=== PATIENT | female | born 1955 | race Caucasian/White ===

== ENCOUNTER 2016-12-10 23:35 | Emergency (ER) | payer BC ==
--- NOTE | ~2016-12-10 | CT2 ---
[facility] A Service of [facility] RADIOLOGY TEXT RESULTS PATIENT: PHIL THAYER LOCATION: [facility] : 51 UNIT #: [id number] AGE: [address]: Logan Sena MD SEX: F ORDER DR: [id number] [place] [id number] [facility]. [place], [place] [address] [id number] E MR#: [id number] Acc #: [id number] NAME: PHIL THAYER : 1955 SEX: F STUDY DATE/TIME: 12/11/2016 0:02 UNIT: [facility] ROOM: STUDY DESCRIPTION: CT Abd and Pelv W Cont Attending Physician: Logan Sena M.D. Ordering Physician: Logan Sena M.D. MEDICAL IMAGING REPORT This report is preliminary unless electronic signature is present EXAM CT abdomen and pelvis with contrast 12/11/2016 HISTORY Stomach pain and vomiting for 2 days. Headache. COMPARISON None. TECHNIQUE 5 mm axial images from the lung bases to the lesser trochanters after intravenous contrast administration. Enteric contrast not history. Sagittal and coronal reformatted images were obtained. This CT exam was performed with one or more of the following radiation dose reduction techniques: automatic exposure control, adjustment of mA and/or kV according to patient size, and iterative reconstruction. FINDINGS ABDOMEN: Liver is markedly diffusely steatotic. The gallbladder, spleen, pancreas, adrenals and kidneys are within normal limits. No free air or free fluid is identified. The appendix is not visualized but no pericecal inflammatory process is evident. The bowel appears grossly non-thickened, non-dilated, non-inflamed, although assessment is limited due to lack of enteric contrast. Diverticular changes are seen within the descending and sigmoid colon without evidence of acute diverticulitis. There is minimal linear scarring or subsegmental atelectasis in the bilateral lower lobes. No dense lung consolidations are identified. PELVIS: Bilateral hip prosthesis creates beam hardening artifact, limiting evaluation on several images of the pelvis. The urinary bladder, [facility] A Service of [facility] RADIOLOGY TEXT RESULTS PATIENT: PHIL THAY[id number] 51 UNIT #: [id number] AGE: [address]: Logan Sena MD SEX: F ORDER DR: uterus and rectum appear grossly unremarkable. Slight sigmoid diverticular changes are present without an acute diverticulitis. There is grade 1 anterolisthesis of L5 on S1 thought to be related to advanced facet arthropathy that level. There is advanced diminished disc height at L5-S1, as well. No acute osseous abnormalities are identified. There are old left seventh and eighth rib fractures. IMPRESSION 1. No acute findings appreciated within the abdomen and pelvis. 2. Appendix is not visualized but no pericecal inflammation is seen. 3. Uncomplicated descending and sigmoid diverticulosis. 4. Marked diffuse hepatic steatosis. 5. Bilateral hip replacements. 6. Grade 1 anterolisthesis of L5 upon S1, thought to be related to advanced facet arthropathy at that level. 7. Old left rib fractures. Dictated by... Samra Londono M.D. THIS IS AN ELECTRONICALLY VERIFIED REPORT Samra Londono M.D. at 12/11/2016 10:01 PM KRISTAL/alice TD: 12/11/2016 02:57 JOB #: [id number] MEDICAL IMAGING REPORT Page 1 of 1 COPY
[2016-12-10 20:07] LABS: BASOPHIL% 0.5 % (0-2.5); EOSINOPHIL# 0.1 X10e3 (0-0.7); EOSINOPHIL% 1.8 % (0.0-7.0); HEMATOCRIT 43.9 % (35.0-45.0); HEMOGLOBIN 14.4 gm/dL (12.0-16.0); LYMPHOCYTE# 1.9 X10e3 (1.0-3.5); MEAN CELL VOLUME 89.1 FL (83-96); MEAN CORPUSCULAR HEMOGLOBIN 29.3 PG (28-34); MEAN CORPUSCULAR HGB CONC 32.9 g/dL (30-36); MEAN PLATELET VOLUME 8.2 FL (6.5-11.5); MONOCYTE# 0.7 X10e3 (0-1.0); MONOCYTE% 12.3 % (3.0-12.0); NEUTROPHIL# 2.8 X10e3 (1.5-7.1); NEUTROPHIL% 51.4 % (40-75); PLATELET COUNT 206 X10e3 (140-420); RED BLOOD COUNT 4.93 X10e (3.90-5.30); RED CELL DISTRIBUTION WIDTH 13.7 % (11.0-15.5); WHITE BLOOD COUNT 5.5 X10e3 (4.0-10.5)
[2016-12-10 20:09] LABS: DIFF IND NO
[2016-12-10 20:39] LABS: ALBUMIN SERUM 4.2 g/dL (3.5-5.0); BILIRUBIN, DIRECT 0.1 mg/dL (0.0-0.2); BILIRUBIN,INDIRECT 0.8 mg/dL (0.0-0.9); BILIRUBIN,TOTAL 0.9 mg/dL (0.2-2.0); BUN/CREATININE RATIO 21.66; CALCIUM SERUM 9.7 mg/dL (8.4-10.2); CREATININE SERUM 0.6 mg/dL (0.6-1.4); POTASSIUM 3.9 mmol/L (3.5-5.1); PROTEIN TOTAL SERUM 7.6 g/dL (6.0-8.3)
[2016-12-10 22:48] LABS: URINE SOURCE CLEAN CATCH
[2016-12-10 23:00] LABS: URINE APPEARANCE CLEAR; URINE BILIRUBIN NEG (NEG); URINE BLOOD NEG (NEG); URINE COLOR DK YELLOW; URINE GLUCOSE NEG (NEG); URINE KETONE NEG (NEG); URINE LEUKOCYTE ESTERASE NEG (NEG); URINE NITRATE NEG (NEG); URINE PROTEIN NEG (NEG); URINE SPECIFIC GRAVITY 1.021 (1.003-1.035); URINE UROBILINOGEN 0.2 MG/DL (NEG)
[2016-12-10 23:07] LABS: CULTURE INDICATED? NO
== END 2016-12-11 01:00 | disposition home or self-care (01) ==
LOC: CED 23:35
DX: R10.10 Upper abdominal pain, unspecified (principal); R11.2 Nausea with vomiting, unspecified; I10 Essential (primary) hypertension; Z90.49 Acquired absence of other specified parts of digestive tract; Z98.51 Tubal ligation status
CPT/HCPCS: 36415; 74177; 80048; 80076; 81003; 83690; 85025; 96361; 96374; 96375; 99284; J2405; Q9967

== ENCOUNTER 2017-01-11 06:56 | Emergency (ER) | payer BC ==
--- NOTE | ~2017-01-11 | CR173 ---
[facility] A Service of [facility] & [facility] RADIOLOGY TEXT RESULTS PATIENT: PHIL THAYER LOCATION: [facility] : 53 UNIT #: [id number] AGE: [address]: Sharda Samuels APRN SEX: F ORDER DR: [id number] [facility] [address] [place], [place] [address] [id number] E MR#: [id number] Acc #: [id number] NAME: PHIL THAYER : 1955 SEX: F STUDY DATE/TIME: 01/11/2017 8:19 UNIT: [facility] ROOM: STUDY DESCRIPTION: CR Knee 3 Views Rt Attending Physician: Sharda Samuels A.P.R.N. Ordering Physician: Kemar Lassiter M.D. Primary Care Physician: No Primary Care Physician MEDICAL IMAGING REPORT This report is preliminary unless electronic signature is present EXAM Right knee. INDICATION Right knee pain after trauma. COMPARISON No comparison. FINDINGS Three views of the right knee were obtained and on the lateral view the relationship between the femoral component and the tibial component of the knee prosthesis appears abnormal with some anterior subluxation of the femoral component on the tibial component. There is no fracture visible. The patella appears intact. The lateral knee view is slightly rotated but even allowing for that, I believe the image is abnormal. Dictated by... Munir Stovall M.D. THIS IS AN ELECTRONICALLY VERIFIED REPORT Munir Stovall M.D. at 01/12/2017 7:26 AM LOLIS/renate TD: 01/11/2017 14:53 JOB #: [id number] MEDICAL IMAGING REPORT Page 1 of 1 COPY
--- NOTE | ~2017-01-11 | CR58 ---
[facility] A Service of [facility] & [facility] RADIOLOGY TEXT RESULTS PATIENT: PHIL THAYER LOCATION: [facility] : 51 UNIT #: [id number] AGE: [address]: Sharda Samuels APRN SEX: F ORDER DR: [id number] [facility] [address] [place], [place] [address] [id number] E MR#: [id number] Acc #: [id number] NAME: PHIL THAYER : 1955 SEX: F STUDY DATE/TIME: 01/11/2017 8:02 UNIT: [facility] ROOM: STUDY DESCRIPTION: CR Cervical Spine 2 or 3 Views Attending Physician: Sharda Samuels A.P.R.N. Ordering Physician: Ed Yousuf Lassiter M.D. Primary Care Physician: No Primary Care Physician MEDICAL IMAGING REPORT This report is preliminary unless electronic signature is present EXAM Cervical spine 3-view series. INDICATION Fall yesterday with neck pain. FINDINGS AP, lateral, and odontoid views of the cervical spine were obtained. There appears to be fusion of C5, 6, and 7. The alignment is normal. The other disc spaces are normal. There is no soft tissue swelling. IMPRESSION Fusion of C5, 6, and 7. No visible fracture or subluxation. Dictated by... Munir Stovall M.D. THIS IS AN ELECTRONICALLY VERIFIED REPORT Munir Stovall M.D. at 01/12/2017 7:26 AM LOLIS/renate TD: 01/11/2017 14:40 JOB #: [id number] MEDICAL IMAGING REPORT Page 1 of 1 COPY
--- NOTE | ~2017-01-11 | CR127 ---
[facility] A Service of [facility] & [facility] RADIOLOGY TEXT RESULTS PATIENT: PHIL THAYER LOCATION: [facility] : 53 UNIT #: [id number] AGE: [address]: Sharda Samuels APRN SEX: F ORDER DR: [id number] [facility] [address] [place], [place] [address] [id number] E MR#: [id number] Acc #: [id number] NAME: PHIL THAYER : 1955 SEX: F STUDY DATE/TIME: 01/11/2017 8:23 UNIT: [facility] ROOM: STUDY DESCRIPTION: CR Foot Complete Min 3 View Rt Attending Physician: Sharda Samuels A.P.R.N. Ordering Physician: Ed Yousuf Lassiter M.D. Primary Care Physician: No Primary Care Physician MEDICAL IMAGING REPORT This report is preliminary unless electronic signature is present EXAM Right foot. INDICATION Right foot pain after a fall yesterday. FINDINGS Three views of the right foot were obtained. No fracture is visible. The bones are normal. IMPRESSION Normal right foot. Dictated by... Munir Stovall M.D. THIS IS AN ELECTRONICALLY VERIFIED REPORT Munir Stovall M.D. at 01/12/2017 7:26 AM LOLIS/renate TD: 01/11/2017 15:02 JOB #: [id number] MEDICAL IMAGING REPORT Page 1 of 1 COPY
--- NOTE | ~2017-01-11 | CR211 ---
[facility] A Service of [facility] RADIOLOGY TEXT RESULTS PATIENT: PHIL THAYER LOCATION: [facility] : 53 UNIT #: [id number] AGE: [address]: Sharda Samuels APRN SEX: F ORDER DR: [id number] [facility] [address] [place], [place] [address] [id number] E MR#: [id number] Acc #: [id number] NAME: PHIL THAYER : 1955 SEX: F STUDY DATE/TIME: 01/11/2017 8:03 UNIT: [facility] ROOM: STUDY DESCRIPTION: CR Ribs Uni 2 View W PA Ch Rt Attending Physician: Sharda Samuels A.P.R.N. Ordering Physician: Ed Yousuf Lassiter M.D. Primary Care Physician: No Primary Care Physician MEDICAL IMAGING REPORT This report is preliminary unless electronic signature is present EXAM Right rib series with PA chest. HISTORY Fall yesterday with right rib pain. FINDINGS A PA view of the chest and oblique views of the right ribs were obtained. The heart size and vascularity are normal and the lungs are clear. The bones are unremarkable. The lungs are clear. IMPRESSION No active disease. Dictated by... Munir Stovall M.D. THIS IS AN ELECTRONICALLY VERIFIED REPORT Munir Stovall M.D. at 01/12/2017 7:26 AM LOLIS/renate TD: 01/11/2017 14:42 JOB #: [id number] MEDICAL IMAGING REPORT Page 1 of 1 COPY
--- NOTE | ~2017-01-11 | CR21 ---
[facility] A Service of [facility] & [facility] RADIOLOGY TEXT RESULTS PATIENT: PHIL THAYER LOCATION: [facility] : 51 UNIT #: [id number] AGE: [address]: Sharda Samuels APRN SEX: F ORDER DR: [id number] [facility] [address] [place], [place] [address] [id number] E MR#: [id number] Acc #: [id number] NAME: PHIL THAYER : 1955 SEX: F STUDY DATE/TIME: 01/11/2017 8:22 UNIT: [facility] ROOM: STUDY DESCRIPTION: CR Ankle Min 3 Views Rt Attending Physician: Sharda Samuels A.P.R.N. Ordering Physician: Ed Yousuf Lassiter M.D. Primary Care Physician: No Primary Care Physician MEDICAL IMAGING REPORT This report is preliminary unless electronic signature is present EXAM Right ankle. INDICATION Right ankle pain after a fall. FINDINGS Three views of the right ankle were obtained. There is no fracture identified. The bones are normal. IMPRESSION Normal right ankle. Dictated by... Munir Stovall M.D. THIS IS AN ELECTRONICALLY VERIFIED REPORT Munir Stovall M.D. at 01/12/2017 7:26 AM LOLIS/renate TD: 01/11/2017 15:01 JOB #: [id number] MEDICAL IMAGING REPORT Page 1 of 1 COPY
--- NOTE | ~2017-01-11 | CR151 ---
[facility] A Service of [facility] & [facility] RADIOLOGY TEXT RESULTS PATIENT: PHIL THAYER LOCATION: [facility] : 51 UNIT #: [id number] AGE: [address]: Sharda Samuels APRN SEX: F ORDER DR: [id number] [facility] [address] [place], [place] [address] [id number] E MR#: [id number] Acc #: [id number] NAME: PHIL THAYER : 1955 SEX: F STUDY DATE/TIME: 01/11/2017 8:27 UNIT: [facility] ROOM: STUDY DESCRIPTION: CR Hip Min 2 Views Rt Attending Physician: Sharda Samuels A.P.R.N. Ordering Physician: Ed Yousuf Lassiter M.D. Primary Care Physician: No Primary Care Physician MEDICAL IMAGING REPORT This report is preliminary unless electronic signature is present EXAM Right hip. INDICATION Right hip pain after a fall yesterday. Patient has right hip and left hip replacement. COMPARISON There is no comparison. FINDINGS An AP view the pelvis and a lateral view of the right hip were obtained. There are bilateral hip prostheses present. There is no fracture visible. There is no dislocation. IMPRESSION Bilateral hip replacements. No evidence of fracture or dislocation. Dictated by... Munir Stovall M.D. THIS IS AN ELECTRONICALLY VERIFIED REPORT Munir Stovall M.D. at 01/12/2017 7:26 AM LOLIS/renate TD: 01/11/2017 15:03 JOB #: [id number] MEDICAL IMAGING REPORT Page 1 of 1 COPY
== END 2017-01-11 10:29 | disposition home or self-care (01) ==
LOC: CED 06:56
DX: S13.4XXA Sprain of ligaments of cervical spine, initial encounter (principal); S23.3XXA Sprain of ligaments of thoracic spine, initial encounter; S70.01XA Contusion of right hip, initial encounter; S20.211A Contusion of right front wall of thorax, initial encounter; S80.01XA Contusion of right knee, initial encounter; W01.0XXA Fall on same level from slipping, tripping and stumbling without subsequent striking against object, initial encounter; Y92.512 Supermarket, store or market as the place of occurrence of the external cause
CPT/HCPCS: 71101; 72040; 73502; 73562; 73610; 73630; 99284

== ENCOUNTER 2017-04-21 09:08 | Emergency (ER) | payer BC ==
[~2017-04-21] VITALS: Ht 175.3 cm; Wt 89.3 kg
--- NOTE | ~2017-04-21 | CR72 ---
[facility] A Service of [facility] RADIOLOGY TEXT RESULTS PATIENT: PHIL THAYER LOCATION: [facility] : 51 UNIT #: [id number] AGE: [address]: Elizabeth Anguiano MD SEX: F ORDER DR: [id number] [place] [id number] [facility]. [place], [place] [address] [id number] E MR#: [id number] Acc #: [id number] NAME: PHIL THAYER : 1955 SEX: F STUDY DATE/TIME: 04/21/2017 10:20 UNIT: [facility] ROOM: STUDY DESCRIPTION: CR Chest Single View Portable Attending Physician: Elizabeth Anguiano M.D. Referring Physician: Lizzy Lance M.D. Ordering Physician: Samm Sandhu M.D. Primary Care Physician: Lizzy Lance M.D. MEDICAL IMAGING REPORT This report is preliminary unless electronic signature is present EXAM AP portable chest Date: 04/21/2017 HISTORY 61-year-old female syncopal episode and shortness of breath today. History of non-Hodgkin's lymphoma. COMPARISON PA lateral chest radiograph 06/14/2016. FINDINGS No acute airspace disease. Benign calcified lymph node in the left hilum. No pleural effusion. No pneumothorax. No acute osseous abnormality. Mild bilateral AC joint arthropathy is present. IMPRESSION 1. No acute chest findings. 2. Benign calcified granulomatous changes. 3. No significant change compared to 06/14/2016. Dictated by... Samra Londono M.D. THIS IS AN ELECTRONICALLY VERIFIED REPORT Samra Londono M.D. at 04/21/2017 5:03 PM LLH/susana TD: 04/21/2017 12:53 [facility] A Service of [facility] RADIOLOGY TEXT RESULTS PATIENT: PHIL THYAER LOCATION: [facility] : 51 UNIT #: [id number] AGE: [address]: Elizabeth Anguiano MD SEX: F ORDER DR: JOB #: [id number] MEDICAL IMAGING REPORT Page 1 of 1 COPY
--- NOTE | ~2017-04-21 | CT71 ---
[facility] A Service of [place] [facility] RADIOLOGY TEXT RESULTS PATIENT: PHIL THAYER LOCATION: [facility] : 53 UNIT #: [id number] AGE: [address]: Elizabeth Anguiano MD SEX: F ORDER DR: [id number] [id number] [facility] [place], [place] [address] [id number] E MR#: [id number] Acc #: [id number] NAME: PHIL THAYER : 1955 SEX: F STUDY DATE/TIME: 04/21/2017 11:14 UNIT: [facility] ROOM: STUDY DESCRIPTION: CT Head Wo Contrast Attending Physician: Elizabeth Anguiano M.D. Referring Physician: Lizzy Lance M.D. Ordering Physician: Samm Sandhu M.D. Primary Care Physician: Lizzy Lance M.D. MEDICAL IMAGING REPORT This report is preliminary unless electronic signature is present EXAM CT scan of the head without contrast, 04/21/2017. HISTORY Blackout at work today; having hallucinations. COMPARISON 05/30/2016 TECHNIQUE Unenhanced images were obtained through the brain. This CT exam was performed with one or more of the following radiation dose reduction techniques: automatic exposure control, adjustment of mA and/or kV according to patient size, and iterative reconstruction. FINDINGS The ventricles and subarachnoid spaces are normal. There are no masses, extraaxial fluid collections, or hemorrhages. Probable arachnoid cyst in the posterior skull above the cisterna magna versus just a simple prominent CSF space, but it is unchanged from 05/30/2016. It is about 2.5 cm in diameter, but there is no mass effect. IMPRESSION No acute abnormalities; no change from the prior study. Dictated by... Munir Stovall M.D. THIS IS AN ELECTRONICALLY VERIFIED REPORT Munir Stovall M.D. at 04/22/2017 7:07 AM [facility] A Service of [place] [facility] RADIOLOGY TEXT RESULTS PATIENT: PHIL THAY[id number] 51 UNIT #: [id number] AGE: [address]: Elizabeth Anguiano MD SEX: F ORDER DR: Cindy TD: 04/21/2017 18:34 JOB #: [id number] MEDICAL IMAGING REPORT Page 1 of 1 COPY
--- NOTE | ~2017-04-21 | EKG ---
PATIENT: PHIL THAYER UNIT #: [id number] Ventricular Rate: 57 BPM Atrial Rate: 57 BPM P-R Interval: 200 ms QRS Duration: 88 ms Q-T Interval: 452 ms QTC Calculation(Bezet): 439 ms P Elmo: 13 degrees Calculated R Elmo: 12 degrees Calculated T Elmo: 39 degrees Diagnosis Line: Sinus bradycardia Diagnosis Line: Minimal voltage criteria for LVH, may be normal Diagnosis Line: variant Diagnosis Line: Inferior infarct , age undetermined Diagnosis Line: Abnormal ECG Diagnosis Line: When compared with ECG of 29-APR-2016 20:49, Diagnosis Line: Inferior infarct is now Present Diagnosis Line: ST no longer depressed in Inferior leads Diagnosis Line: Confirmed by LEÓN BERNARDO MD ([id number]) on Diagnosis Line: 04/21/2017 2:11:56 PM INTERPRETING MD: TOVA MCNEIL
--- NOTE | ~2017-04-21 | HM ---
Unit #: [id number] #: [id number] Patient: PHIL THAYER [id number] [address] [address] [id number] E MR#: [id number] NAME: PHIL THAYER : 1955 SEX: F STUDY DATE/TIME: 04/21/2017 UNIT: [facility] ROOM: STUDY DESCRIPTION: Holter Monitor Attending Physician: Elizabeth Anguiano M.D. Referring Physician: Lizzy Lance M.D. Primary Care Physician: Lizzy Lance M.D. CARDIOLOGY REPORT EXAM Holter Monitor DATE APPLIED 04/21/2017 DATE SCANNED 04/27/2017 ORDERED BY Elizabeth Anguiano M.D. READ BY Lian Simpson M.D. REASON FOR TEST Syncope DESCRIPTION 1. Basic rhythm is normal sinus rhythm. Total beats 99,610. Average heart rate 69 per minute. Heart rate varies from 53 per minute at 1419 to 92 per minute at 1557. 2. 38 isolated PVCs noted. 3. 4 isolated PACs noted. 4. No high grade AV blocks noted. 5. No diary with the symptoms available. Dictated by... Terrell Huerta/eugenia TD: 04/28/2017 16:20 JOB #: [id number] Unit #: [id number] #: [id number] Patient: PHIL THAYER CARDIOLOGY REPORT Page 1 of 1 X Aquiles Simpson MD HOLTER MONITOR REPORT
[2017-04-21 10:09] LABS: BASOPHIL% 0.4 % (0-2.5); EOSINOPHIL# 0.1 X10e3 (0-0.7); EOSINOPHIL% 2.3 % (0.0-7.0); HEMATOCRIT 39.8 % (35.0-45.0); HEMOGLOBIN 13.1 gm/dL (12.0-16.0); LYMPHOCYTE# 1.4 X10e3 (1.0-3.5); LYMPHOCYTE% 38.4 % (17.0-45.0); MEAN CELL VOLUME 89.6 FL (83-96); MEAN CORPUSCULAR HEMOGLOBIN 29.4 PG (28-34); MEAN CORPUSCULAR HGB CONC 32.8 g/dL (30-36); MEAN PLATELET VOLUME 8.2 FL (6.5-11.5); MONOCYTE# 0.4 X10e3 (0-1.0); MONOCYTE% 11.9 % (3.0-12.0); NEUTROPHIL# 1.7 X10e3 (1.5-7.1); PLATELET COUNT 184 X10e3 (140-420); RED BLOOD COUNT 4.44 X10e (3.90-5.30); RED CELL DISTRIBUTION WIDTH 14.4 % (11.0-15.5); WHITE BLOOD COUNT 3.7 X10e3 (4.0-10.5)
[2017-04-21 10:11] LABS: DIFF IND NO
[2017-04-21 10:32] LABS: ALBUMIN SERUM 3.9 g/dL (3.5-5.0); BILIRUBIN, DIRECT 0.1 mg/dL (0.0-0.2); BILIRUBIN,INDIRECT 0.8 mg/dL (0.0-0.9); BILIRUBIN,TOTAL 0.9 mg/dL (0.2-2.0); BUN/CREATININE RATIO 18.57; CALCIUM SERUM 9.2 mg/dL (8.4-10.2); CREATININE SERUM 0.7 mg/dL (0.6-1.4); GLOM FILT RATE Estimated 92.2 mL/min (>60); POTASSIUM 3.4 mmol/L (3.5-5.1)
== END 2017-04-21 14:28 | disposition home or self-care (01) ==
LOC: CED 09:08
PROVIDERS: Emergency Medicine
DX: R55 Syncope and collapse (principal); I10 Essential (primary) hypertension; Z98.51 Tubal ligation status
CPT/HCPCS: 36415; 70450; 71010; 80048; 80076; 82947; 85025; 93005; 93225; 93226; 99285